=== PATIENT | male | born 1965 | race Caucasian/White ===

== ENCOUNTER 2021-06-10 15:09 | Emergency (ER) | payer OTHER ==
[~2021-06-10] VITALS: Ht 180.3 cm; Wt 77.1 kg
[2021-06-10 15:47] VITALS: BP 113/72
== END 2021-06-10 15:48 | disposition left against medical advice (07) ==
LOC: M.ERS 15:09 → EDBD 15:09 → M.ERS 15:48
DX: R10.9 Unspecified abdominal pain (principal); Z53.21 Procedure and treatment not carried out due to patient leaving prior to being seen by health care provider